=== PATIENT | female | born 1975 | race Caucasian/White ===

== ENCOUNTER 2022-03-07 09:33 | Emergency (ER) | payer BC, SELFPAY ==
[2022-03-07 10:02] VITALS: BP 156/77; PULSE 95; RESP 20; TEMP 37; O2SAT 99; BMI 47.6
[2022-03-07 11:05] LABS: MANUAL DIFF FLAG NO
[2022-03-07 11:10] LABS: Basophils Percent Auto 0.1 % (0-2); Eosinophils Absolute Auto 0.2 X10*3/uL (0.0-0.4); Eosinophils Percent Auto 2.1 % (0-4); Hematocrit 38.1 % (37.0-47.0); Hemoglobin 12.4 g/dl (12.0-16.0); Imm Gran Abs Auto 0.06 X10*3/uL (0.00-0.03); Imm Gran Pct Auto 0.6 % (0.0-0.4); Lymphocytes Absolute Auto 2.3 X10*3/uL (1.2-4.9); Lymphocytes Percent Auto 23.1 % (20-40); Mean Corpuscular HGB Conc 32.5 g/dl (31.0-35.0); Mean Corpuscular Hemoglobin 26.6 pg (27.0-33.0); Mean Corpuscular Volume 81.8 fL (80.0-98.0); Mean Platelet Volume 8.5 fL (9.4-12.3); Monocytes Absolute Auto 0.6 X10*3/uL (0.1-1.2); Monocytes Percent Auto 6.5 % (2-11); Neutrophils Absolute Auto 6.6 x10*3/uL (2.0-8.3); Neutrophils Percent Auto 67.6 % (45-73); Platelet Count 403 X10*3/uL (160-400); Red Blood Count 4.66 X10*6/uL (4.20-5.50); Red Cell Distribution Width 13.2 % (11.0-16.0); White Blood Count 9.8 X10*3/uL (4.8-10.8)
[2022-03-07 11:21] LABS: Alanine Aminotransferase 58 U/L (0-31); Albumin Level 4.5 g/dL (3.5-5.0); Alkaline Phosphatase 95 U/L (39-117); Anion Gap 16 (12-20); Aspartate Amino Transferase 41 U/L (5-31); Bilirubin Total 0.2 mg/dL (0.0-1.0); Blood Urea Nitrogen 12 mg/dL (9-16); C Reactive Protein 1.37 mg/dL (< or = 0.50); Calcium 9.6 mg/dL (8.4-10.2); Carbon Dioxide 24 mmol/L (22-29); Chloride 101 mmol/L (96-108); Creatinine Clr Calc Pharmacy 112.9; Estimated Glomerular Filt Rate > 60; Glucose Random 117 mg/dL (60-115); Potassium 4.6 mmol/L (3.3-5.1); Sodium 136 mmol/L (135-145); Total Protein 7.5 g/dL (6.5-8.0)
--- NOTE | 2022-03-07 11:21 | ED_ITS ---
HPI - Headache General Chief Complaint: Headache Stated Complaint: Migraine sent from urgent care Time Seen by Provider: 03/07/22 11:08 Source: patient Mode of arrival: ambulatory Limitations: no limitations History of Present Illness HPI Narrative: 47-year-old female with a history of migraines here with reports of right-sided migraine for the last 3 days. Patient tells me she is taking Tylenol home with continued symptoms. Patient reports pain is behind the right eye and radiates down the back of the head. She has associated nausea and photophobia and phonophobia. No dizziness, weakness, numbness, tingling, speech changes. patient tells me this feels similar to her previous migraines. in the past when she has sought care Toradol has improved her migraines. patient tells me that she is currently working with an elementary reading specialist for idiopathic urticaria. She has been recommended to avoid NSAIDs. She has an EpiPen at home. She went to urgent care and was offered Toradol but patient was hesitant to take this due to her recommendations for elementary reading specialist. She was referred into the emergency department for further evaluation. Patient reports she has some floaters in her right eye. Again this is very typical for her previous migraines. Related Data Allergies Allergy/AdvReac Type Severity Reaction Status Date / Time oxycodone [From PERCOCET] Allergy Mild VOMITING Verified 03/07/22 10:07 acetaminophen [Percocet] Allergy Unknown vomiting Verified 03/07/22 10:07 ethinyl estradiol AdvReac Unknown migraines Verified 03/07/22 10:07 [Seasonique] levonorgestrel-ethinyl AdvReac Unknown migraines Verified 03/07/22 10:07 estradiol [Seasonique] SEASONIQUE BCP AdvReac Mild UNKNOWN Uncoded 03/07/22 10:07 Review of Systems Review of Systems: Yes all other systems are reviewed and are negative Constitutional: Constitutional: Reports no additional constitutional complaints, Denies body ache(s), Denies chills, Denies fever(s), Reports headache(s) and Denies weakness Eyes: Eyes: Reports no additional eye complaints, Denies change in vision, Reports floaters and Reports photophobia ENT: Reports system reviewed and no additional complaints, except as documented, Denies dizziness, Reports headache(s), Denies nasal congestion, Denies nasal discharge and Denies neck pain Cardiovascular: Cardiovascular: Reports no additional cardiovascular com plaints, Denies chest pain, Denies leg edema and Denies dyspnea Respiratory: Respiratory: Reports no additional respiratory complaints, Denies cough and Denies dyspnea Gastrointestinal: Gastrointestinal: Reports no additional gastrointestinal complaints, Denies abdominal pain, Denies diarrhea, Reports nausea and Denies vomiting Genitourinary: Genitourinary: Reports no additional female genitourinary complaints and Denies urinary incontinence Musculoskeletal: Musculoskeletal: Reports no additional musculoskeletal complaints, Denies back pain, Denies arthralgias, Denies joint swelling, Denies neck pain, Denies numbness and Denies tingling Integumentary/Breasts: Skin/Breast: Reports system reviewed and no additional complaints, except as docu and Denies rash Neurologic: Reports system reviewed and no additional complaints, except as documented, Denies Abnormal speech present, Denies dizziness, Reports headache(s), Denies numbness, Denies tingling and Denies weakness PMFSH Past Medical History Attestation statement: The following information was validated with the patient. Source: old records reviewed and nursing notes reviewed Social History Social History Advance Directives: Yes Advance Directives Information Provided: Yes Advance Directives on File: No Physical Exam Vital Signs: Vital Signs: Last Vital Signs Temp 98.6 F 03/07/22 10:02 Pulse 95 03/07/22 10:02 Resp 20 03/07/22 10:02 BP 156/77 H 03/07/22 10:02 Pulse Ox 99 03/07/22 10:02 O2 Del Method 03/07/22 10:02 BMI result Body Mass Index 47.6 Const: General: cooperative, healthy appearing, comfortable and no acute distress Orientation/consciousness: patient oriented x3 Limitations: no limitations HEENT: Head: Yes normal to inspection Ears: hearing grossly normal bilaterally and TM's normal bilaterally General nose exam: Normal external nose present Face and sinus: Yes normal facial exam Mouth: Normal oral and palatal mucosa present Throat: Yes posterior oropharynx normal, Yes tonsils normal and Yes uvula midline Eyes: General: appearance normal, both eyes and all related structures Pupils: Equal, round and reactive pupils present Direct Ophthalmoscopy: photophobia Neck: Neck: Yes normal visual inspection, Yes full ROM, Yes no lymphadenopathy and Yes no meningeal signs Chest: Chest palpation & inspection: normal inspection of the chest Resp: Effort & Inspection: normal respiratory effort Auscultation: clear to auscultation bilaterally Cardio: Rate: regular rate Rhythm: regular rhythm Peripheral pulses: Peripheral pulses 2+ throughout GI: Inspection: Yes normal to inspection Palpation (GI): Soft to palpation and nontender Auscultation: normal bowel sounds Back/Spine/Pelvis: Thoracic/Lumbar Spine: thoracic and lumbar spine normal to inspection Skin: General skin exam: no rashes or lesions noted Neuro: General: patient oriented x3, no meningeal signs, no focal motor deficits and normal sensation to monofilament Cranial nerves: Yes CN's II-XII intact bilaterally, Yes Equal, round and reactive pupils present, Yes Bilaterally intact EOM present, Yes Nystagmus not present, Yes Normal facial strength present and Yes Midline tongue present Cognition (Neuro): normal cognition Speech: No Abnormal speech present Gait exam (Neuro): Normal gait present Motor exam (neuro): 5/5 motor strength present throughout Sensory Exam: Normal double simultaneous stimulation for sensation Extrem: General: Yes normal to inspection Course Course Course Narrative: 1252- Patient tells me headache is now 2/10. Floaters are resolved. Overall she is feeling much improved Reevaluation(s) Reevaluation #1: 1330- pain is resolved. Patient is eating pretzels and drinking fluids. She overall feels much better. Plan for discharge home. Reviewed worrisome signs and symptoms of when to return to the emergency department. Comfortable discharge home. MDM - Headache MDM Narrative Medical decision making narrative: 47-year-old female with a longstanding history of migraines here with reports of right-sided migraine with floaters, nausea, photophobia, phonophobia for the last 3 days unrelieved with Tylenol at home. Patient also has a history of idiopathic urticaria and is being worked up by an elementary reading specialist. She has been recommended to avoid NSAIDs although this has been helpful in the past for her migraines. On arrival patient has a normal neurological exam. Her vitals are stable. Will have nursing place P IV, give normal saline bolus, Reglan and Benadryl. - Low concern for SAH due to gradual onset Medical Records Attestation: I reviewed the patient's medical records. Lab Data Attestation: I reviewed the patient's lab results. Result diagrams: 03/07/22 11:00 03/07/22 11:00 Labs: Lab Results 03/07/22 03/07/22 03/07/22 Range/Units 11:00 11:00 11:00 WBC 9.8 (4.8-10.8) X10*3/uL RBC 4.66 (4.20-5.50) X10*6/uL Hgb 12.4 (12.0-16.0) g/dl Hct 38.1 (37.0-47.0) % MCV 81.8 (80.0-98.0) fL MCH 26.6 L (27.0-33.0) pg MCHC 32.5 (31.0-35.0) g/dl RDW 13.2 (11.0-16.0) % Plt Count 403 H (160-400) X10*3/uL MPV 8.5 L (9.4-12.3) fL Immature Gran % (Auto) 0.6 H (0.0-0.4) % Neut % (Auto) 67.6 (45-73) % Lymph % (Auto) 23.1 (20-40) % [place] % (Auto) 6.5 (2-11) % Eos % (Auto) 2.1 (0-4) % Baso % (Auto) 0.1 (0-2) % Lymph # (Auto) 2.3 (1.2-4.9) X10*3/uL [place] # (Auto) 0.6 (0.1-1.2) X10*3/uL Eos # (Auto) 0.2 (0.0-0.4) X10*3/uL Baso # (Auto) 0.0 (0.0-0.2) X10*3/uL Abs Immat Gran (auto) 0.06 H (0.00-0.03) X10*3/uL Absolute Neuts (auto) 6.6 (2.0-8.3) x10*3/uL Absolute Nucleated RBC 0.000 (0.0-0.012) X10*3/uL Nucleated RBC % (auto) 0.0 (0.0-0.2) /100WBC ESR 15 (0-20) MM/HR Sodium 136 (135-145) mmol/L Potassium 4.6 (3.3-5.1) mmol/L Chloride 101 (96-108) mmol/L Carbon Dioxide 24 (22-29) mmol/L Anion Gap 16 (12-20) BUN 12 (9-16) mg/dL Creatinine 0.62 (0.5-1.4) mg/dL Estim Creat Clear Calc 112.9 Estimated GFR > 60 Random Glucose 117 H (60-115) mg/dL Calcium 9.6 (8.4-10.2) mg/dL Total Bilirubin 0.2 (0.0-1.0) mg/dL AST 41 H (5-31) U/L ALT 58 H (0-31) U/L Alkaline Phosphatase 95 (39-117) U/L C-Reactive Protein 1.37 H (< or = 0.50) mg/dL Total Protein 7.5 (6.5-8.0) g/dL Albumin 4.5 (3.5-5.0) g/dL Discharge Plan Discharge Clinical Impression: Migraine Patient Disposition: Home, Self-Care Instructions: Migraine Headache (ED) Additional Instructions: drink lots of fluids get rest avoid stress avoid migraine food triggers Referrals: Gillian Ponce MD [Primary Care Provider] - 1 week Interventions: ED Discharge Assessment Last Done: 03/07/22 13:39 Discharge Date/Time: 03/07/22 13:39
[2022-03-07 11:47] LABS: Erythrocyte Sedimentation Rate 15 MM/HR (0-20)
[2022-03-07] MEDS: diphenhydrAMINE HCL 50 MG/ML VIAL 25 MG IVPUSH (11:53)
[2022-03-07] MEDS: 0.9 % Sodium Chloride 1,000 ML 999 ML IV (11:53)
[2022-03-07] MEDS: Metoclopramide HCl 10 MG/2 ML VIAL IVPUSH (11:53)
--- NOTE | 2024-03-03 09:49 | PM.PNNEP ---
Subjective Subjective Date of Service: 02/29/24 Principal diagnosis: CKD 2, DM, Heavy Proteinuria Interval history: RTANE pateint seen in [facility] today Full note avail [id number] or [place] Text me Physical Exam Vital Signs: Vital Signs: Last Vital Signs Temp 98.6 F 03/07/22 10:02 Pulse 95 03/07/22 10:02 Resp 20 03/07/22 10:02 BP 156/77 H 03/07/22 10:02 Pulse Ox 99 03/07/22 10:02 O2 Del Method Room Air 03/07/22 10:02 BMI result Body Mass Index 47.6 Objective Data Labs 03/07/22 11:00 03/07/22 11:00 Procedures Date of Service Date of Service: 03/03/24 Assessment & Plan Time Spent With Patient Time: Total time managing care of this patient today ____ minutes.
== END 2022-03-07 13:39 | disposition home or self-care (01) ==
PROVIDERS: Physician Assistant Medical; Emergency Provider Emergency Medicine Emergency Medical Services; PCP Family Medicine
DX: G43.909 Migraine, unspecified, not intractable, without status migrainosus (principal); Z79.899 Other long term (current) drug therapy
CPT/HCPCS: 36415; 80053; 85025; 85652; 86140; 96361; 96374; 96375; 99284; J1200; J2765

== ENCOUNTER 2025-05-17 18:41 | Emergency (ER) | payer BC, SELFPAY ==
--- NOTE | ~2025-05-17 | XR_ITS ---
CLINICAL HISTORY: SOB 2 view chest x-ray Comparison: None provided Findings: The lungs are clear. Heart size is normal. No acute fracture. IMPRESSION: 1. No acute findings. This document has been electronically signed by: Mendoza Seals MD on 05/17/2025 19:34:03
[2025-05-17 19:02] VITALS: BP 148/80; PULSE 95; RESP 18; TEMP 36.6; O2SAT 100; BMI 37.3
--- NOTE | 2025-05-17 19:02 | ED_ITS ---
HPI - General Adult General Chief complaint: Dyspnea Stated complaint: sob,asthma chest feels heavy Time Seen by Provider: 05/17/25 20:37 Source: patient Mode of arrival: EMS History of Present Illness ED Provider: [facility] narrative: 50-year-old female who has known history of asthma and reports that this evening she had acute onset and was unable to resolve it with her home inhalers, she denies any prodrome of illness like headache/body aches, however she states that she began to feel very anxious and began to breathe faster and then developed chest discomfort and then became more scared because her father from a heart attack. Related Data Previous Rx's ?Medication ?Instructions ?Recorded prednisone 20 mg tablet 40 mg (2 x 20 mg) PO DAILY 4 days 05/17/25 #8 tabs Allergies Allergy/AdvReac Type Severity Reaction Status Date / Time oxycodone (From PERCOCET) Allergy Mild VOMITING Verified 05/17/25 19:04 ethinyl estradiol AdvReac Unknown migraines Verified 05/17/25 19:04 (Seasonique) levonorgestrel-ethinyl AdvReac Unknown migraines Verified 05/17/25 19:04 estradiol (Seasonique) SEASONIQUE BCP AdvReac Mild UNKNOWN Uncoded 05/17/25 19:04 Review of Systems 2 Review of Systems: Pertinent positives and negatives as stated in HPI [facility] Past Medical History Attestation statement: The following information was validated with the patient. Source: nursing notes reviewed Social History Social History Alcohol intake: never Smoked in Last 30 Days: No Use of substances other than those prescribed or required for medical reasons: Yes Substance Use Type: Marijuana Substance Use Frequency: Occasionally Advance Directives: No Advance Directives Information Provided: Yes Do you have a plan to hurt others: No Plan Physical Exam ED Exam Exam: VITAL SIGNS: Reviewed. GENERAL: Elevated BMI, Well developed, well nourished, in no acute distress. HEAD: Normocephalic/atraumatic EYES: PERRLA, EOMI EARS: Ext canals without abnormality NOSE: Nares patent bilateral OROPHARYNX: no oral lesions noted, posterior pharynx clear NECK: Supple, no adenopathy LUNGS: Normal breath sounds. No adventitious sounds or accessory muscle use. SpO2<99> CARDIOVASCULAR: Regular rate and rhythm without noted murmurs, no JVD or lower extremity edema. ABDOMEN: Soft, non-tender, non-distended with bowel sounds. MUSCULOSKELETAL: No tenderness, deformities, or effusions noted on gross inspection. EXTREMITIES: No cyanosis, clubbing or edema. SKIN: Inspection of the skin reveals no rashes NEUROLOGIC: Alert and oriented x 4. Strength and sensation to light touch were grossly intact x 4. Vital Signs: Vital Signs - 24 hr 05/17/25 19:02 05/17/25 20:22 05/17/25 20:27 Temperature 97.8 F 98.2 F Pulse Rate 95 88 87 Respiratory Rate 18 14 21 H Blood Pressure 148/80 H 137/74 Pulse Oximetry 100 99 Oxygen Delivery Method Room Air Room Air BMI result Body Mass Index 37.3 Course Course Course Narrative: Rapid medical examination performed in triage by Ann Olivo PA-C. Patient is a 50 year old assigned female at presenting to the emergency department with SOB. Detailed physical exam and review of systems are deferred to the truck car and bus cleaner. EKG, labs, imaging, swabs ordered. Patient placed back in the waiting room pending room availability and results. Medications Administered Discontinued Medications Generic Name Dose Route Start Last Admin Trade Name Freq PRN Reason Stop Dose Admin Albuterol/Ipratropium 3 ml 05/17/25 20:21 05/17/25 20:24 Albuterol/Iprat 2.5/0.5mg 3 Ml Ampul.Neb INHALE 05/17/25 20:22 3 ml ONCE ONE Administration Methylprednisolone Sodium Succinate 60 mg 05/17/25 19:03 05/17/25 20:37 Methylprednisolone Sod Succ 125 Mg/2 Ml Vial IVPUSH 05/17/25 19:04 60 mg ONCE ONE Administration Medical Decision Making Medical Decision Making MDM Narrative: 50-year-old female with history and clinical presentation, DD DX: Acute asthma exacerbation, lower clinical suspicion for viral illness/ACS/pneumonia. My interpretation of the EKG: Sinus rhythm, HR-90, no STEMI, RI/QRS/QTC/QTC is otherwise within normal limits. 2154: I reviewed and interpreted all investigations and there is no leukocytosis, anemia, or thrombocytopenia. VBG does not demonstrate respiratory acidosis or hypercapnia. There is no demonstrate ROSALIO/electrolyte or liver enzyme derangements. My interpretation is in agreement with radiology's impression that there is no acute intrathoracic abnormalities, specifically no evidence of infiltrate or venous congestion. Patient otherwise appears well/nontoxic and is hemodynamically stable. Will treat her as a mild asthma exacerbation. All results and findings discussed with her at bedside she is otherwise discharged. Differential Diagnosis Differential Diagnoses: The differential diagnosis associated with the presentation includes See above Admission/Observation Consideration of admission/observation: Escalation of care including admission/observation considered See above Lab Data MDM Lab Attestation statement: I reviewed the patient's lab results. See above 05/17/25 20:11 05/17/25 20:11 Labs: Lab Results 05/17/25 05/17/25 Range/Units 20:11 20:19 WBC 8.8 (4.8-10.8) X10*3/uL RBC 4.59 (4.20-5.50) X10*6/uL Hgb 13.0 (12.0-16.0) g/dl Hct 36.8 L (37.0-47.0) % MCV 80.2 (80.0-98.0) fL MCH 28.3 (27.0-33.0) pg MCHC 35.3 H (31.0-35.0) g/dl RDW 13.1 (11.0-16.0) % Plt Count 364 (160-400) X10*3/uL MPV 8.5 L (9.4-12.3) fL Immature Gran % (Auto) 0.3 (0.0-0.4) % Neut % (Auto) 70.0 (45-73) % Lymph % (Auto) 22.0 (20-40) % [place] % (Auto) 6.7 (2-11) % Eos % (Auto) 0.9 (0-4) % Baso % (Auto) 0.1 (0-2) % Lymph # (Auto) 1.9 (1.2-4.9) X10*3/uL [place] # (Auto) 0.6 (0.1-1.2) X10*3/uL Eos # (Auto) 0.1 (0.0-0.4) X10*3/uL Baso # (Auto) 0.0 (0.0-0.2) X10*3/uL Abs Immat Gran (auto) 0.03 (0.00-0.03) X10*3/uL Absolute Neuts (auto) 6.2 (2.0-8.3) x10*3/uL Absolute Nucleated RBC 0.000 (0.0-0.012) X10*3/uL Nucleated RBC % (auto) 0.0 (0.0-0.2) /100WBC VBG pH 7.50 H (7.32-7.43) VBG pCO2 33 mmHg VBG pO2 41 mmHg VBG HCO3 26 (22-26) mmol/L VBG O2 Saturation 67.0 % VBG Base Excess 3.5 mmol/L Sodium 138 (135-145) mmol/L Potassium 4.0 (3.3-5.1) mmol/L Chloride 103 (96-108) mmol/L Carbon Dioxide 25 (22-29) mmol/L Anion Gap 14 (12-20) BUN 6 L (9-16) mg/dL Creatinine 0.59 (0.5-1.4) mg/dL Estim Creat Clear Calc 122.1 Estimated GFR > 60 Random Glucose 97 (60-115) mg/dL Calcium 9.5 (8.4-10.2) mg/dL Magnesium 1.9 (1.6-2.6) mg/dL Total Bilirubin 0.3 (0.0-1.0) mg/dL AST 19 (5-31) U/L ALT 20 (0-31) U/L Alkaline Phosphatase 95 (39-117) U/L Total Protein 7.3 (6.5-8.0) g/dL Albumin 4.6 (3.5-5.0) g/dL Independent Interpretation I performed an independent interpretation of an: EKG and Plain X-Ray Interpretation: See above Radiology Impression Discussion of test interpretation with radiology: I have reviewed the radiologist's reading. Radiologist Impression: See above Discharge Plan Discharge Clinical Impression: Asthma with exacerbation Patient Disposition: Home, Self-Care Instructions: Asthma (ED) Additional Instructions: Resume all home medications as prescribed. You may need to increase the frequency of the use of your albuterol inhaler for the next 24 hours. Complete the short course of steroids the you are being provided. Follow-up with your primary care doctor within the next week and do not hesitate to return to the emergency room for any acute worsening of your symptoms. Prescriptions: New prednisone 20 mg tablet 40 mg PO DAILY 4 Days Qty: 8 0RF Referrals: Gillian Ponce MD [Primary Care Provider, Family Practice] Print Language: Estonian
[2025-05-17 20:19] LABS: MANUAL DIFF FLAG NO
[2025-05-17 20:22] VITALS: BP 137/74; PULSE 88; RESP 14; TEMP 36.8; O2SAT 99
[2025-05-17 20:22] LABS: Venous Blood Gas Refer to POC result
[2025-05-17 20:23] LABS: VBG HCO3 26 mmol/L (22-26); VBG O2 % Saturation 67.0 %
[2025-05-17 20:24] LABS: Hematocrit 36.8 % (37.0-47.0); Hemoglobin 13.0 g/dl (12.0-16.0); Imm Gran Abs Auto 0.03 X10*3/uL (0.00-0.03); Imm Gran Pct Auto 0.3 % (0.0-0.4); Lymphocytes Absolute Auto 1.9 X10*3/uL (1.2-4.9); Mean Corpuscular HGB Conc 35.3 g/dl (31.0-35.0); Mean Corpuscular Hemoglobin 28.3 pg (27.0-33.0); Mean Corpuscular Volume 80.2 fL (80.0-98.0); NRBC Abs Auto 0.000 X10*3/uL (0.0-0.012); NRBC Pct Auto 0.0 /100WBC (0.0-0.2); Platelet Count 364 X10*3/uL (160-400); Red Blood Count 4.59 X10*6/uL (4.20-5.50); White Blood Count 8.8 X10*3/uL (4.8-10.8)
[2025-05-17] MEDS: Albuterol/Iprat 2.5/0.5MG 3 ML AMPUL.NEB INHALE (20:24)
[2025-05-17 20:27] VITALS: PULSE 87; RESP 21; O2SAT 100
[2025-05-17 20:33] LABS: Alanine Aminotransferase 20 U/L (0-31); Albumin Level 4.6 g/dL (3.5-5.0); Alkaline Phosphatase 95 U/L (39-117); Anion Gap 14 (12-20); Aspartate Amino Transferase 19 U/L (5-31); Blood Urea Nitrogen 6 mg/dL (9-16); Calcium 9.5 mg/dL (8.4-10.2); Carbon Dioxide 25 mmol/L (22-29); Chloride 103 mmol/L (96-108); Creatinine Clr Calc Pharmacy 122.1; Estimated Glomerular Filt Rate > 60; Magnesium 1.9 mg/dL (1.6-2.6); Potassium 4.0 mmol/L (3.3-5.1); Sodium 138 mmol/L (135-145); Total Protein 7.3 g/dL (6.5-8.0)
--- NOTE | 2025-05-17 20:35 | PC.NURSE ---
20 G IV line established in RAC. Patient medicated per NOV. O2 Sat 100% with neb treatment, dyspnea improving.
--- OUTSIDE RECORDS SUMMARY | 2025-05-17 20:45 | XMS_ITS | Clinical Summary ---
Author Organization [facility] Address [address] [place] [address] Phone Care Team Providers Care Stereotype Molder Name Role Phone Dian Brush PA-C Primary Care Provider Allergies Active Allergy Reactions Criticality Noted Date Comments Nsaids 10/26/2021 Oxycodone-Acetaminophen 04/20/2015 Other reaction(s): vomiting [place] Extract Rash Low 04/20/2015 Medications sertraline (ZOLOFT) 100 MG tablet Take 100 mg by mouth in the morning. Active montelukast (SINGULAIR) 10 MG tablet Take 10 mg by mouth in the morning. Active metFORMIN XR (GLUCOPHAGE-XR) 500 MG 24 hr tablet 08/04/20 21 Active levothyroxine (SYNTHROID, LEVOTHROID) 75 MCG tablet levothyroxine Activ e Levonorgestrel 20 MCG/DAY intrauterine device 1 Device by Intrauterine route 03/23/20 19 Active hydrOXYzine (ATARAX) 25 MG tablet 3 times a day Active budesonide-formo terol (Symbicort) 80-4.5 MCG/ACT inhaler 08/21/20 21 Active albuterol HFA (PROVENTIL HFA;VENTOLIN HFA) 108 (90 Base) MCG/ACT inhaler every 4 (four) hours Active EPINEPHrine (EPIPEN) 0.3 MG/0.3ML injection syringe USE DIRECTED FOR ANAPHYLAXIS THEN CALL 911 10/10/19 22 Active Mounjaro 5 MG/0.5ML solution pen-injector INJECT 5 MG SUBCUTANEOUSLY WEEKLY FOR 28 DAYS 07/24/20 23 Active Xolair 150 MG/ML solution prefilled syringe 08/05/20 23 Active famotidine (PEPCID) 40 MG tablet Take 40 mg by mouth 1 (one) time each day 06/30/20 Active levocetirizine (XYZAL) 5 MG tablet Take 5 mg by mouth 1 (one) time each day in the evening Active Dapagliflozin Propanediol (Farxiga) 10 MG tablet Take 10 mg by mouth 1 (one) time each day 90 tablet 2 08/12/20 Active lisinopril 20 MG tablet Take 2 tablets (40 mg total) by mouth 1 (one) time each day 180 tablet 3 08/12/20 Active Active Problems Problem Noted Date Diagnosed Date Chronic kidney disease, stage 2 (mild) 4 Proteinuria 08/12/2023 Type 2 diabetes mellitus wit h diabetic chronic kidney disease 08/12/2023 Chronic kidney disease, stage 2 (mild) 3 Menorrhagia 03/23/2019 08/11/2023 Overview (08/11/2023): Improved with Mirena, but still with light bleeding most days of the month Plan new Mirena with EMB Severe obesity 01/25/2019 08/11/2023 Hypothyroidism 01/25/2019 08/11/2023 Hypertensive disorder 01/25/2019 08/11/2023 Family history of malignant neoplasm of breast 0 01/25/2019 08/11/2023 Overview (08/11/2023): Two aunts on mother's side. No one has had genetic testing 01/2019 - offered; suggested she ask aunt or mother to get testing Asthma 01/25/2019 08/11/2023 Anxiety disorder 01/25/2019 08/11/2023 Immunizations Immunization Administration Dates Next Due Hep B, Unspecified 02/12/2009,11/08/2008, 009 Influenza (IM) Preservative Free 06/16/2013 Influenza Split Preservative Free ID 06/11/2011 Influenza, Quadrivalent, Pre servative Free 07/22/2019,05/04/2017,06/11/2016,07/10 Influenza, Unspecified 05/08/2012,07/17/2010 Moderna SARS-COV-2 06/11/2022 Pneumococcal Polysaccharide 12/18/2015 Td, Unspecified 07/13/2007 Tdap 07/17/2010 Family History Medical History Relation Comments Diabetes Father Heart disease Father cardiomyopathy h ypertrophic & atrial fibrillation Hyperlipidemia Father Hypertension Father Kidney disease Father Stroke Father cerebrovascular accident Cancer Maternal Grandfather prostate ma lignant tumor Kidney disease Maternal Grandfather Glaucoma Maternal Grandmother Heart disease Maternal Grandmother myocardial infarction Heart disease Paternal Grandfather Stroke Paternal Grandmother cerebrovasc ular accident Graves' disease Sister Relation Status Comments Father Maternal Grandfather Maternal Grandmother Paternal Grandfather Paternal Grandmother Sister Social History Tobacco Use Types Packs/Day Years Used Date Smoking Tobacco: Former Cigarettes Q uit: 1995 Alcohol Use Standard Drinks/Week Comments Never 0 (1 standard drink = 0.6 oz pur e alcohol) Comments Unknown Sex and Gender Information Value Date Recorded Sex Assigned at Not on file Legal Sex Female 3:49 PM EST Gender Identity Not on file Sexual Orientation Not on file Last Filed Vital Signs Vital Sign Reading Time Taken Comments Blood Pressure 119/67 02/29/2024 3:33 PM EDT Pulse 84 02/29/2024 3:33 PM EDT Temperature - - Respiratory Rate - - Oxygen Saturation 98% 02/29/2024 3:33 PM EDT Inhaled Oxygen Concentration - - Weight 92.7 kg (204 lb 6.4 oz) 02/29/2024 3:33 P M EDT Height - - Body Mass Index - - Plan of Treatment Health Maintenance Due Date Last Done Comments Hepatitis B Vaccine (1 of 3 - 19+ 3-dose series) 01/04/1995 02/12/2009, 11/08/2008, 10/06/2008 Pneumococcal Vaccine: Peds ( 0 to 5 Years) and At-Risk Patients (6 to 49 Years) (2 of 2 - PCV) 12/17/2016 12/18/2015 Diabetes: Hemoglobin A1C 08/12/2023 Diabetes: Ophthalmology Exam 08/12/2023 Diabetes: Pedal Pulse Checked 08/12/2023 Diabetes: Sensory Foot Exam 08/12/2023 Diabetes: Visual Foot Exam 08/12/2023 Colorectal Cancer Screening: Annual FOBT 01/04/2025 Colorectal Cancer Screening: Colonoscopy 01/04/2025 Colorectal Cancer Screening: Sigmoidoscopy 01/04/2025 Influenza Vaccine (#1) 2025 9, 05/04/2017, 06/11/2016, Additional history exists Insurance [facility] Care Teams Stereotype Molder Relationship Specialty Start Date End Date Dian Brush PA-C [address] [place] [address] PCP - General Physician Unemployment Insurance Director 08/10/23
--- OUTSIDE RECORDS SUMMARY | 2025-05-17 20:45 | XMS_ITS | Encounter Summary ---
Author Organization [facility] Address [address] [place] [address] Phone Care Team Providers Care Trim Setter Name Role Phone Mariella Bueno MD Unavailable [phone] Gillian Ponce MD Primary Care Provider SpencerKaiden perez Jethro DO Unavailable [phone] Encounter Details Date Type Department Care Team (Latest Contact Info) Description 08/21/2022 Transcribe Orders Virtual Department [address] [place] [address] Arron Carvajal MD [address] [place] [address], [address] [address] [email or web address] Calculus of kidney (Primary Dx) Social History Tobacco Use Types Packs/Day Years Used Date Smoking Tobacco: Never Smokeless Tobacco: Never Alcohol Use Standard Drinks/Week Comments Not Currently 0 (1 standard drink = 0.6 oz pur e alcohol) Comments No Sex and Gender Information Value Date Recorded Sex Assigned at Female 05/22/2022 10:03 AM EDT Legal Sex Female 9:27 PM EDT Gender Identity Female 05/22/2022 10:03 AM EDT Sexual Orientation Straight 05/22/2022 10 :03 AM EDT documented as of this encounter Plan of Treatment Not on file documented as of this encounter Results * US Kidneys and Bladder (08/25/2022 8:35 AM EST) Anatomical Region Laterality Modality Abdomen, Kidney Ultrasound 08/25/2022 12:0 0 PM EST Impressions 08/25/2022 12:02 PM EST 1. No calculus or hydronephrosis demonstrated sonographically. Bilateral ureteral jets demonstrated Narrative 08/25/2022 12:02 PM EST US KIDNEYS AND BLADDER TECHNIQUE: Kidney Ultrasound. COMPARISON: Renal sonography 04/10/[address] abdomen pelvis 05/22/2022 FINDINGS: Right Kidney: Size: 13.4 cm Normal cortical thickness and echogenicity. No stones or hydronephrosis. Left Kidney: Size: 14.7 cm Normal cortical thickness and echogenicity. No stones or hydronephrosis. Bladder: The bladder is mildly distended. Bilateral ureteral jets are demonstrated. Prevoid bladder volume: Approximately 99 mL Post void bladder volume: Approximately 4 mL Increased echogenicity of the hepatic parenchyma incidentally demonstrated in keeping with hepatic steatosis. Procedure Note Tomasa Gama MD - 08/25/2022 US KIDNEYS AND BLADDER TECHNIQUE: Kidney Ultrasound. COMPARISON: Renal sonography 04/10/[address] abdomen pelvis 05/22/2022 FINDINGS: Right Kidney: Size: 13.4 cm Normal cortical thickness and echogenicity. No stones orhydronephrosis. Left Kidney: Size: 14.7 cm Normal cortical thickness and echogenicity. No stones orhydronephrosis. Bladder: The bladder is mildly distended. Bilateral ureteral jets aredemonstrated. Prevoid bladder volume: Approximately 99 mL Post void bladder volume: Approximately 4 mL Increased echogenicity of the hepatic parenchyma incidentally demonstratedin keeping with hepatic steatosis. IMPRESSION: 1. No calculus or hydronephrosis demonstrated sonographically. Bilateralureteral jets demonstrated Arron Carvajal MD [facility] Final Result documented in this encounter Visit Diagnoses Diagnosis Calculus of kidney- Primary Calculus of kidney documented in this encounter Care Teams Trim Setter Relationship Specialty Start Date End Date Gillian Ponce MD [address] [place] [address], [facility] [address] [id number] [email or web address] PCP - General Family Medicine 09/04/20 Mariella Bueno MD [address] [place] [address], [facility] [address] [place] [address] [email or web address] Historical LMR Provider 06/24/17 Kaiden Palmer DO [address] [place] [address] [email or web address] Primary Oncologist Hematology and Oncology 09/12/20 documented as of this encounter Additional Source Comments The information contained in this document represents components of the legal health record. It is not the complete legal health record.[facility]
--- OUTSIDE RECORDS SUMMARY | 2025-05-17 20:45 | XMS_ITS | Clinical Summary ---
Author Organization [facility] Address [address] [place] [address] Phone Care Team Providers Care Accounting Policy Consultant Name Role Phone Mariella Bueno MD Unavailable [phone] Gillian Ponce MD Primary Care Provider SpencerKaiden perez DO Unavailable [phone] Allergies Active Allergy Reactions Criticality Noted Date Comments L Norgest/E.Estradiol-E.Estra d 04/20/2015 Other reaction(s): headaches Oxycodone-Acetaminophen 04/20/2015 Other reaction(s): vomiting [place] Rash Low 04/20/2015 [place] Extract Rash Low 04/20/2015 Medications sertraline (ZOLOFT) 100 MG tablet Take 100 mg by mouth daily. Active lisinopril (PRINIVIL,ZESTRI L) 10 MG tablet Take 40 mg by mouth daily. Active levonorgestreL (MIRENA) 20 mcg/24 hours (8 yrs) 52 mg intrauterine device 1 Device by Intrauterine route Once every 5 years. Active cyanocobalamin (VITAMIN B-12) 1,000 mcg/mL injection Inject 1,000 mcg into the muscle every 30 (thirty) days. Active famotidine (PEPCID) 20 MG tablet 2 (two) times a day before meals. Active levothyroxine (SYNTHROID, LEVOTHROID) 75 MCG tablet levothyroxine Activ e lancets (ONETOUCH DELICA LANCETS) 33 gauge Misc OneTouch Delica Lancets 33 gauge Active blood sugar diagnostic (ONETOUCH ULTRA TEST) Strp strips OneTouch Ultra Test strips Active blood-glucose (ONETOUCH ULTRA2 METER) Misc meter OneTouch Ultra2 Meter Active alcohol PadM Alcohol Prep Pads Active budesonide-formo terol (SYMBICORT) 80-4.5 mcg/actuation inhaler Symbicort 80 mcg-4.5 mcg/actuation HFA aerosol inhaler Inhale 2 puffs twice a day by inhalation route. Active EPINEPHrine 0.3 mg/0.3 mL auto-injector USE DIRECTED FOR ANAPHYLAXIS THEN CALL 911 10/10/19 22 Active hydrOXYzine (ATARAX) 25 MG tablet 3 (three) times a day. Active metFORMIN (GLUCOPHAGE-XR) 500 MG 24 hr tablet 08/04/20 21 Active albuterol 90 mcg/actuation inhaler every 4 (four) hours. Active cyclobenzaprine (FLEXERIL) 10 MG tablet Take 1 tablet (10 mg total) by mouth 3 (three) times a day as needed (muscle). 15 tablet 10/26/19 22 Active Additional Information Patient not taking.Reported on 03/31/2025 ondansetron (ZOFRAN) 4 MG tablet Take 1 tablet (4 mg total) by mouth every 8 (eight) hours as needed for nausea. 10 tablet 05/22/20 22 Active montelukast (SINGULAIR) 10 mg tablet Take 10 mg by mouth nightly at bedtime. Active omalizumab (XOLAIR SUBQ) Inject under the skin. Every 3 weeks Active MOUNJARO 7.5 mg/0.5 mL PnIj Inject 7.5 mg under the skin once a week. 02/03/20 24 Active BD INTEGRA SYRINGE 3 mL 25 gauge x 1 Syrg USE MONTHLY TO INJECT B12 MEDICATION 12/04/19 24 Active rosuvastatin (CRESTOR) 5 MG tablet Take 5 mg by mouth daily. 01/31/20 24 Active levocetirizine (XYZAL) 5 MG tablet Take 5 mg by mouth. Active ALPRAZolam (XANAX) 1 MG tablet TAKE 1 HOUR PRIOR TO FLIGHT 02/03/20 24 Active econazole nitrate 1 % cream PLEASE SEE ATTACHED FOR DETAILED DIRECTIONS 02/04/20 24 Active famotidine (PEPCID) 40 MG tablet Take 40 mg by mouth daily. Active Hospital, Clinic, or Other Facility Administered Medication Ordered Dose Route Frequency Start Date End Date Status levonorgestrel (MIRENA) 20 mcg/24 hours (5 yrs) 52 mg intrauterine device 1 each 1 each Utrn Every 5 years 03/23/2019 Active Active Problems Problem Noted Date Diagnosed Date Menorrhagia with regular cycle 03/23/2019 Overview (03/23/2019): Improved with Mirena, but still with light bleeding most days of the month Plan new Mirena with EMB Anxiety disorder 01/25/2019 Asthma 01/25/2019 High blood pressure 01/25/2019 Hypothyroid 01/25/2019 Class 3 severe obesity due t o excess calories with serious comorbidity and body mass index (BMI) of 40.0 to 44.9 in adult 01/25/2019 Family history of breast cancer 01/25/2019 Overview (01/25/2019): Two aunts on mother's side. No one has had genetic testing 01/2019 - offered; suggested she ask aunt or mother to get testing Encounters Date Type Department Care Team Description 03/31/2025 11:50 AM EDT Office Visit [facility] at [address] [address] Mia Weston, MACHINE HELPER Ingrown toenail (Primary Dx); Paronychia of great toe, left from Last 3 Months Immunizations Immunization Administration Dates Next Due COVID-19 (Pre-06/29) Moderna Vaccine, Bivalent 6mo+ 06/11/2022 Hepatitis B, unspecified formulation 02/12/2009, 11/08/2008,10/06/2008 INFLUENZA, SPLIT VIRUS, TRIVALENT PF 06/16/2013 INFLUENZA, SPLIT VIRUS, TRIV ALENT W/ PRESERVATIVE IM 07/17/2010 Influenza Quadrivalent Prese rvative Free IM 07/22/2019,05/04/2017,06/11/2016,07/10 Influenza trivalent preserva tive free intradermal 06/11/2011 Influenza, Unspecified Formulation 05/08/2012 Pneumococcal polysaccharide PPSV23 12/18/2015 Td, unspecified formulation 07/13/2007 Tdap 07/17/2010 Family History Medical History Relation Comments Cardiovascular disease Father Diabetes Father Heart failure Father Hypertension Father Kidney disease Father Bone cancer Maternal Grandfather Prostate cancer Maternal Grandfather Hypertension Maternal Grandmother Osteoporosis Maternal Grandmother No Known Problems Mother Kidney disease Paternal Grandfather Stroke Paternal Grandmother Relation Status Comments Father Maternal Grandfather Maternal Grandmother Mother Paternal Grandfather Paternal Grandmother Social History Tobacco Use Types Packs/Day Years Used Date Smoking Tobacco: Never Smokeless Tobacco: Never Tobacco Cessation:Counseling Given: Not Answered Alcohol Use Standard Drinks/Week Comments Yes 0 (1 standard drink = 0.6 oz pur e alcohol) rare Education Answer Date Recorded Are you interested in more education? Not on tiffani e 01/02/2023 Are you concerned about learning? Not on file 01/02/2023 No 01/02/2023 No 01/02/2023 Digital Access Answer Date Recorded No 01/30/2023 No 01/30/2023 Reliable internet access at home? Not on file 01/30/2023 Device with a working camera? Not on file Comments No Sex and Gender Information Value Date Recorded Sex Assigned at Female 05/22/2022 10:03 AM EDT Legal Sex Female 9:27 PM EDT Gender Identity Female 05/22/2022 10:03 AM EDT Sexual Orientation Straight 05/22/2022 10 :03 AM EDT Last Filed Vital Signs Vital Sign Reading Time Taken Comments Blood Pressure 122/79 03/31/2025 12:27 PM EDT Pulse 84 03/31/2025 12:27 PM EDT Temperature 36.8 C (98.2 F) 03/31/2025 12:27 PM EDT Respiratory Rate 18 03/31/2025 12:27 PM EDT Oxygen Saturation 98% 03/31/2025 12:27 PM EDT Inhaled Oxygen Concentration - - Weight 104.3 kg (230 lb) 02/29/2024 1:32 PM EDT Height 144.8 cm (4' 9 ) 02/29/2024 1:32 PM EDT Body Mass Index 49.77 02/29/2024 1:32 PM EDT Plan of Treatment Health Maintenance Due Date Last Done Comments LIPID PANEL 1975 TSH LEVEL 1975 DEPRESSION SCREENING 1988 HEPATITIS C SCREENING 01/04/1994 HIV ONE-TIME SCREENING (18-65 YEARS) 01/04/1994 SCREENING FOR DIABETES 01/04/2011 PNEUMOCOCCAL VACCINES (0-49 years) (2 of 2 - PCV) 12/17/2016 12/18/2015 COLOGUARD 01/04/2021 FIT TEST 01/04/2021 FOBT 01/04/2021 SIGMOIDOSCOPY 01/04/2021 VIRTUAL COLONOSCOPY 01/04/2021 CREATININE LEVEL 05/22/2023 05/22/2022 POTASSIUM LEVEL 05/22/2023 05/22/2022 MAMMOGRAM 09/05/2023 09/05/2021, 01/27/2019 INFLUENZA VACCINE (#1) 2025 , 05/27/2023, 05/30/2022, Additional history exists COVID-19 VACCINE ( season) 2025 06/25/2023, 06/25/2023, 06/11/2022, Additional history exists BLOOD PRESSURE 10/01/2025 03/31/2025 IUD 03/23/2027 03/23/2019 PAP SMEAR 02/28/2029 02/29/2024, 0509/2018, 01/25/2019, Additional history exists Adult Td,Tdap Booster 04/01/2031 04/01/2021 , 07/17/2010, 07/13/2007 COLONOSCOPY 08/04/2032 08/04/2022 COLORECTAL CANCER SCREENING 08/04/2032 SMOKING STATUS SCREENING (Once After 26 Yrs) Completed 02/29/2024 HEPATITIS A VACCINES Aged Out No long er eligible based on patient's age to complete this topic HIB VACCINES Aged Out No longer eligi ble based on patient's age to complete this topic MENINGOCOCCAL VACCINES (ACWY) Aged Out No longer eligible based on patient's age to complete this topic MENINGOCOCCAL VACCINES (B) Aged Out N o longer eligible based on patient's age to complete this topic Medical Devices Not on file Procedures Procedure Name Priority Date/Time Associated Diagnosis Comments PAP TEST Routine 02/29/2024 12:00 AM EDT ENDOSCOPY, COLON 08/04/2022 9:16 AM EST BASIC METABOLIC PANEL STAT 05/22/2022 10:31 AM EDT HM MAMMOGRAPHY Routine 09/05/2021 from Last 3 Months or Most Recently Relevant to Health Maintenance Results * Pap Test (02/29/2024 12:00 AM EDT) 02/29/2024 03/01/2024 10: 43 AM EDT Narrative SEE NARRATIVE - 03/09/2024 1:13 PM EDT [address] [address] Director Of Women'S Services: Cris Guerra MD [employer] DEVELOPER Cytology Report FINAL DIAGNOSIS A. PAP SMEAR (THIN PREP) CE: SPECIMEN ADEQUACY: Satisfactory for evaluation; transformation zone present. INTERPRETATION: NEGATIVE FOR INTRAEPITHELIAL LESION OR MALIGNANCY. Reactive changes. This specimen was analyzed by the automated ThinPrep Imaging System (Easy Vino.) and manually rescreened by a clinical trials data coordinator and/or pathologist. Electronically Signed Out By: BYRON Melendrez MD(ASCP) By his/her signature above, the pathologist listed as making the Final Diagnosis certifies that he/she has personally reviewed this case and confirmed or corrected the diagnosis. The Pap test is a screening test primarily for squamous cancers and precursors and has associated false-negative and false-positive results. New technologies such as liquid-based preparations may decrease but will not eliminate all false-negative results. Regular sampling and follow-up of unexplained clinical signs and symptoms are recommended to minimize false negative results. PROCEDURES/ADDENDA HPV Testing (Requested) Ordered Date: 03/01/2024 A. PAP SMEAR (THIN PREP) CE: Human Papilloma Virus Test NEGATIVE for high-risk Human Papilloma Virus types 16, 18, 45 and the Other high risk probe set (Includes 31, 33, 35, 39, 51, 52, 56, 58, 59, 66, 68) Note: Testing performed by Biolase Onclarity HR-HPV analysis. Clinical correlation is advised. This HPV test was performed at [facility], [address] [place] [address]. This test has been FDA approved for both SurePath and ThinPrep cervical cytology specimens. The accuracy and precision of this test for all other specimen sources has been verified in the Cytopathology Laboratory of the [facility] and has not been cleared or approved by the U.S. Food and Drug Administration. Clinical correlation is advised. CLINICAL HISTORY Date of Last Menstrual Period: Not Provided Menstrual History: No LMP given Contraceptive History: IUD Other Clinical Conditions: Screening Pap SPECIMEN SOURCE A: PAP SMEAR (THIN PREP) CE Patient Name: RUBEN CHAVEZ : 1975 (Age: 49) Sex: F Institution: [facility] Location: [facility] Date of Collection: 02/29/2024 Date of Reported: 03/09/2024 13:13 Results to: Daksha Simon MD Daksha Simon MD CYTOLOGY ORDERABLES Final Result SEE NARRATIVE * ENDOSCOPY, COLON (08/04/2022 9:16 AM EST) Narrative Transcriptions Derrick Espinoza MD - 08/04/2022 9:16 AM EST Patient Name: Ruben Komody Attending MD:: DERRICK ESPINOZA MD Procedure Date: 08/04/2022 9:16 AM Date of : 1975 Age: 47 Admit Type: Outpatient Gender: Female Room: [facility] EN 05 Referring MD: Gillian Ponce MD Exam Type: Colonoscopy Indications: Screening for colorectal malignant neoplasm, Thisis the patient's first colonoscopy Medications: Propofol per Anesthesia Procedure: Informed consent was obtained from the patientafter discussion of the indications, limitations, alternatives, benefits, and risks of the procedure. Risks specifically discussed include but are not limited to medication reactions, missed lesions, bleeding, perforation, or the need for emergent surgery. Throughout the procedure, the patient's blood pressure, pulse, end-tidal CO2, and oxygensaturations were monitored continuously. The Colonoscope was introduced through the anus and advanced to the cecum, identified by theappendiceal orifice, ileocecal valve and palpation. The colonoscopy was performed without difficulty. The patient tolerated the procedure fairly well. The quality of the bowel preparation was good. The ileocecal valve, appendiceal orifice, and rectumwere photographed. Complications: No immediate complications. Estimated blood loss: Minimal. Findings: The perianal and digital rectal examinations were normal. Pertinent negatives include normalsphincter tone. A 6 mm polyp was found at 35 cm proximal to theanus. The polyp was sessile. The polyp was removed with a cold snare. Resection and retrieval were complete. Estimated blood loss was minimal. Retroflexion in the right colon was performed. Non-bleeding internal hemorrhoids were found during retroflexion. The hemorrhoids were moderate. The exam was otherwise without abnormality ondirect and retroflexion views. Impression: - One 6 mm polyp at 35 cm proximal to the anus, removed with a cold snare. Resected andretrieved. - Non-bleeding internal hemorrhoids. - The examination was otherwise normal on directand retroflexion views. Recommendation: - I will send results of your biopsy to you andyour referring physician or provider. If you do notreceive notification within 3 weeks, please call ouroffice. - If the pathology report reveals adenomatoustissue, then repeat the colonoscopy for surveillance basedon pathology results in 5 years. - If the pathology report reveals no adenomatous tissue, then repeat the colonoscopy for screening purposes in 10 years. DERRICK ESPINOZA MD 08/04/2022 9:42:35 AM This report has been signed electronically. Number of Addenda: 0 Note Initiated On: 08/04/2022 9:16 AM Procedure Code(s): --- Professional --- 90772, Colonoscopy, flexible; with removal of tumor(s), polyp(s), or other lesion(s) by snare technique --- Technical --- 64790, Colonoscopy, flexible; with removal of tumor(s), polyp(s), or other lesion(s) by snare technique Diagnosis Code(s): --- Professional --- Z12.11, Encounter for screening for malignantneoplasm of colon K63.5, Polyp of colon K64.8, Other hemorrhoids --- Technical --- Z12.11, Encounter for screening for malignantneoplasm of colon K63.5, Polyp of colon K64.8, Other hemorrhoids CPT copyright 2020 [employer]. All rights reserved. The codes documented in this report are preliminary and upon athletic team physician reviewmay be revised to meet current compliance requirements. Procedure Date: 08/04/2022 9:16:[address] [place] [id number] Gillian Ponce MD GI PROCEDURE ORDERABLES Fin al Result * (ABNORMAL) Basic metabolic panel (05/22/2022 10:31 AM EDT) SODIUM 139 133 - 146 mmol/L [facility] CHLORIDE 99 96 - 108 mmol/L [facility] POTASSIUM 4.4 3.3 - 5.1 mmol/L [facility] CO2 26 21 - 35 mmol/L [facility] BUN 9 6 - 19 mg/dL [facility] CREATININE 0.50 0.5 - 1.5 mg/dL [facility] GLUCOSE 151(H) 70 - 99 mg/dL [facility] CALCIUM 10.0 8.4 - 10.3 mg/dL [facility] EGFR 117 >59 mL/min/1.7 3m2 [facility] Comment:Estimated glomerular filtration rate calculated using the CKD-EPI refit equation. ANION GAP 18 10 - 20 mmol/L [facility] Blood 05/22/2022 10:3 1 AM EDT 05/22/2022 10:41 AM EDT us Lorraine JIM LAB BLOOD ORDERABLES Final Result [facility] [address] [place] [address] * MAMMOGRAPHY FOR RESULT ENTRY ONLY (09/05/2021) Historical Provider MD HEALTH MAINTENANCE Final Result from Last 3 Months or Most Recently Relevant to Health Maintenance Insurance [facility] Care Teams Accounting Policy Consultant Relationship Specialty Start Date End Date Gillian Ponce MD [address] [place] [phone] [email or web address] PCP - General Family Medicine 09/04/20 Mariella Bueno MD [address] [place] [address] Historical LMR Provider 06/24/17 Kaiden Palmer DO [address] [place] [address] [email or web address] Primary Oncologist Hematology and Oncology 09/12/20 Additional Source Comments The information contained in this document represents components of the legal health record. It is not the complete legal health record.[facility]
--- OUTSIDE RECORDS SUMMARY | 2025-05-17 20:45 | XMS_ITS | Encounter Summary ---
Author Organization [facility] Address [address] [place] [address] [place] [address] Phone Care Team Providers Care Electronic Organ Mechanic Name Role Phone Mariella Bueno MD Unavailable [phone] Gillian Ponce MD Primary Care Provider [phone] SpencerKaiden perez DO Unavailable [phone] Encounter Details Date Type Department Care Team (Late st Contact Info) Description 05/22/2022 Procedure Pass [facility], Ct Scan - [address] [address] Social History Tobacco Use Types Packs/Day Years Used Date Smoking Tobacco: Never Smokeless Tobacco: Never Alcohol Use Standard Drinks/Week Comments Yes 0 (1 standard drink = 0.6 oz pur e alcohol) Comments No Sex and Gender Information Value Date Recorded Sex Assigned at Female 05/22/2022 10:03 AM EDT Legal Sex Female 9:27 PM EDT Gender Identity Female 05/22/2022 10:03 AM EDT Sexual Orientation Straight 05/22/2022 10 :03 AM EDT documented as of this encounter Functional Status * Calculated C-SSRS Risk Score (Lifetime/Recent) Answer Date of Assessment Author No Risk Indicated 05/22/2022 10:03 AM EDT Shivani Trinidad RN * [place] Suicide Severity Rating Scale (Screener/Recent Self-Report) Question Answer Date of Assessment Author 1. Wish to be (Past 1 Month) No 022 10:03 AM EDT Shivani Calzada, RN 2. Non-Specific Active Suici nova Thoughts (Past 1 Month) No 05/22/2022 10:03 AM Augustine Zee RN 6. Suicidal Behavior (Lifetime) No 10:03 AM Shivani Zee RN documented as of this encounter Plan of Treatment Not on file documented as of this encounter Visit Diagnoses Not on filedocumented in this encounter Care Teams Electronic Organ Mechanic Relationship Specialty Start Date End Date Gillian Ponce MD [address] [place] [phone] [email or web address] PCP - General Family Medicine 09/04/20 Mariella Bueno MD [address] [place] [address] [email or web address] Historical LMR Provider 06/24/17 Kaiden Palmer DO [address] [place] [address] [email or web address] Primary Oncologist Hematology and Oncology 09/12/20 documented as of this encounter Additional Source Comments The information contained in this document represents components of the legal health record. It is not the complete legal health record.[facility]
--- OUTSIDE RECORDS SUMMARY | 2025-05-17 20:45 | XMS_ITS | Encounter Summary ---
Author Organization [facility] Address [address] [place] [id number] Phone Care Team Providers Care Physical Education Specialist Name Role Phone Mariella Bueno MD Unavailable [phone] Gillian Ponce MD Primary Care Provider [phone] Kaiden Palmer DO Unavailable [phone] Encounter Details Date Type Department Care Team (Late st Contact Info) Description 07/16/2022 Procedure Pass [place] Admitting Dept - Virtual Department [address] [place] [id number] Social History Tobacco Use Types Packs/Day Years [...] on filedocumented in this encounter Care Teams Physical Education Specialist Relationship Specialty Start Date End Date Gillian Ponce MD 22 [facility], [address] [address] PCP - General Family Medicine 09/04/20 Mariella Bueno MD [address] [place] [address], [facility] [address] [place] [address] [email or web address] Historical LMR Provider 06/24/17 Kaiden Palmer DO [address] [place] [address] [email or web address] Primary Oncologist Hematology and Oncology 09/12/20 documented as of this encounter Additional Source Comments The information contained in this document represents components of the legal health record. It is not the complete legal health record.[facility]
--- OUTSIDE RECORDS SUMMARY | 2025-05-17 20:45 | XMS_ITS | Encounter Summary ---
Author Organization [facility] Address [address] [place] [address] [place] [phone] Phone Care Team Providers Care Paint Stock Clerk Name Role Phone Mariella Bueno MD Unavailable [phone] Gillian Ponce MD Primary Care Provider Kaiden Palmer DO Unavailable [phone] Encounter Details Date Type Department Care Team (Late st Contact Info) Description 08/04/2022 Procedure Pass [facility] Endoscopy Admitting Dept Virtual Department [address] [place] [address] Social History Tobacco Use Types Packs/Day Years [...] on filedocumented in this encounter Care Teams Paint Stock Clerk Relationship Specialty Start Date End Date Gillian Ponce MD 22 [facility], [address] [address] [email or web address] PCP - General Family Medicine 09/04/20 Mariella Bueno MD [address] [place] [address], [facility] [address] [place] [address] [email or web address] Historical LMR Provider 06/24/17 Kaiden Palmer DO [address] [place] [id number] [email or web address] NiceYUE Primary Oncologist Hematology and Oncology 09/12/20 documented as of this encounter Additional Source Comments The information contained in this document represents components of the legal health record. It is not the complete legal health record.[facility]
--- NOTE | 2025-05-17 21:42 | ECG_ITS ---
Test Reason : CHEST PAIN Blood Pressure : */* mmHG Vent. Rate : 90 BPM Atrial Rate : 90 BPM P-R Int : 148 ms QRS Dur : 74 ms QT Int : 380 ms P-R-T Axes : 52 16 44 degrees QTcB Int : 464 ms Normal sinus rhythm Normal ECG When compared with ECG of 26-Jun-2019 11:08, No significant change was found Referred By: Yazmin Martinez Electronically Signed By: PRO SEGURA MD
[2025-05-17 22:16] VITALS: BP 135/62; PULSE 85; RESP 16; TEMP 36.7; O2SAT 97
[2025-05-17 22:19] VITALS: BP 135/62; PULSE 85; RESP 16; TEMP 36.7; O2SAT 97
== END 2025-05-17 22:28 | disposition home or self-care (01) ==
PROVIDERS: Physician Assistant Medical; Emergency Provider Student in an Organized Health Care Education/Training Program; PCP Family Medicine
DX: J45.901 Unspecified asthma with (acute) exacerbation (principal)
CPT/HCPCS: 36415; 71046; 80053; 82803; 83735; 85025; 93005; 94640; 96372; 99284; 99285; J2919

== ENCOUNTER → 2025-05-17 19:03 | Outpatient (BNV) | payer BC, SELFPAY | PROVIDERS: PCP Family Medicine; Visit Provider Radiology Diagnostic Radiology | DX: R06.02 Shortness of breath (principal) | CPT/HCPCS: 71046 ==

== ENCOUNTER → 2025-05-17 21:42 | Outpatient (BNV) | payer BC, SELFPAY | PROVIDERS: Emergency Provider Student in an Organized Health Care Education/Training Program; PCP Family Medicine; Visit Provider Internal Medicine Cardiovascular Disease | DX: R07.9 Chest pain, unspecified (principal) | CPT/HCPCS: 93010 ==